=== PATIENT | male | born 1975 | race Caucasian/White ===

== ENCOUNTER 2016-09-28 19:01 | Emergency (ER) | payer OTHER ==
[~2016-09-28] VITALS: Ht 172.7 cm; Wt 85.2 kg
[2016-09-28 19:54] LABS: HEMATOCRIT 41.2 % (38.0-50.0); MCH 29.8 PG (29.0-34.0); MCHC 35.7 G/DL (30.0-36.0); MCV 83.4 FL (86-99); MEAN PLAT.VOLUME 11.1 uM^3 (9.0-12.4); PLATELET COUNT 204 K/uL (156-360); RBC DIS.WIDTH-CV 12.2 % (11.8-14.6); RBC DIS.WIDTH-SD 36.4 % (39-53); RED BLOOD COUNT 4.94 M/uL (4.00-5.50); WHITE BLOOD COUNT 8.6 K/uL (4.1-10.2)
[2016-09-28 20:04] LABS: ADD MIUA? NO; BILIRUBIN NEGATIVE; BLOOD NEGATIVE; COLOR YELLOW ((YELLOW)); GLUCOSE (STRIP) NEGATIVE; KETONES 20; LEUKOCYTES NEGATIVE; NITRITE NEGATIVE; PROTEIN (STRIP) NEGATIVE; SPECIFIC GRAVITY 1.018 (1.000-1.030); UCUL ADDED? NO; UROBILINOGEN 0.2 MG/DL (0.2-1.0)
[2016-09-28 20:06] LABS: CHLORIDE 102 mEq/L (99-109); POTASSIUM 3.8 mEq/L (3.7-5.4); SODIUM 138 mEq/L (136-147)
[2016-09-28 20:08] LABS: GLUCOSE 108 mg/dL (70-99)
[2016-09-28 20:10] LABS: ANION GAP 9 MEQ/L (2-14); TOTAL BILIRUBIN 0.5 mg/dL (0.0-1.0)
[2016-09-28 20:12] LABS: ALKALINE PHOSPHATASE 96 IU/L (3-129); GFR ESTIMATE (CALCULATED) > 59 mL/min/
[2016-09-28 20:13] LABS: UREA NITROGEN (BUN) 14 mg/dL (9-23)
[2016-09-28] MEDS ORDERED: TRAMADOL HCL50 MG PO (21:07)
[2016-09-28 21:10] LABS: LIPASE 24 U/L (1.0-51.0)
[2016-09-28] MEDS ORDERED: ZOFRAN ODT4 MG PO (22:12)
[2016-09-29 00:01] VITALS: BP 112/69
== END 2016-09-29 00:02 | disposition home or self-care (01) ==
LOC: EME 19:01
DX: R10.84 Generalized abdominal pain (principal); R11.0 Nausea; K59.00 Constipation, unspecified; Z87.891 Personal history of nicotine dependence
CPT/HCPCS: 74000; 74177; 80053; 81003; 83690; 85027; 99281; 99284